=== PATIENT | female | born 1980 | race Two or more races ===

== ENCOUNTER 2016-10-04 08:29 | Emergency (ER) | payer MEDICAID ==
[~2016-10-04] VITALS: Ht 152.4 cm; Wt 79.4 kg
--- NOTE | 2016-10-04 11:48 | NUR ---
Patient discharged to home in stable condition. Written and verbal after care instructions given. Patient verbalizes understanding of instruction.
[2016-10-04 11:51] VITALS: BP 125/78
== END 2016-10-04 11:51 | disposition home or self-care (01) ==
LOC: ER 08:32
DX: J18.9 Pneumonia, unspecified organism (principal); R05 Cough; Z90.49 Acquired absence of other specified parts of digestive tract; Z88.0 Allergy status to penicillin
CPT/HCPCS: 71010; 84703; 99283; A4606; Z7610

== ENCOUNTER 2018-06-02 07:42 | Emergency (ER) | payer SELFPAY ==
[~2018-06-02] VITALS: Ht 160 cm; Wt 86.2 kg
[2018-06-02 07:42] VITALS: BP 136/90
== END 2018-06-02 08:26 | disposition home or self-care (01) ==
LOC: ER 07:46
DX: J02.0 Streptococcal pharyngitis (principal); Z90.49 Acquired absence of other specified parts of digestive tract; Z88.0 Allergy status to penicillin